=== PATIENT | male | born 1985 | race Two or more races ===

== ENCOUNTER 2018-11-10 23:41 | Emergency (ER) | payer OTHER ==
[~2018-11-10] VITALS: Ht 175.3 cm; Wt 99.8 kg
[2018-11-11] MEDS ORDERED: KETO10TA2 PO (03:16)
[2018-11-11] MEDS ORDERED: CYCLOBENZAPRINE10 MG PO (03:16)
[2018-11-11] MEDS ORDERED: ORPHENADRINE C100 MG PO (03:16)
== END 2018-11-11 04:05 | disposition home or self-care (01) ==
LOC: ER 23:41
DX: M62.838 Other muscle spasm (principal)